=== PATIENT | male | born 1990 | race Caucasian/White ===

== ENCOUNTER → 2017-01-25 | Outpatient (CLI) | payer OTHER ==
[2017-01-25 14:59] LABS: HIV 1/2 Antibodies Non-Reactive; HIV-1p24 Antigen Non-Reactive
[2017-01-25 23:30] LABS: HEPATITIS A ANTIBODY-IGM Negative (()); HEPATITIS B SURFACE AB-QL Positive (())
[2017-01-29 16:07] LABS: RPR QUANTITATIVE XXX
== END ==
LOC: COL.LAB 13:02
DX: A04.7 Enterocolitis due to Clostridium difficile (principal)